=== PATIENT | female | born 1980 | race African-American/Black ===

== ENCOUNTER 2020-08-26 12:32 | Emergency (ER) | payer SELFPAY ==
[~2020-08-26] VITALS: Ht 144.8 cm; Wt 52.2 kg
[2020-08-26 12:46] VITALS: BP 138/92
== END 2020-08-26 15:16 | disposition left against medical advice (07) ==
LOC: ER 12:32
DX: R53.1 Weakness (principal); Z53.21 Procedure and treatment not carried out due to patient leaving prior to being seen by health care provider